=== PATIENT | male | born 1950 | race Two or more races ===

== ENCOUNTER 2017-11-21 14:56 | Emergency (ER) | payer MEDICARE ==
[~2017-11-21] VITALS: Ht 172.7 cm; Wt 81.6 kg
[~2017-11-21 14:56] MED LIST: ALLO100T PO; ASPI81CH43 PO; ATOR20TA50 PO; B-CO800T2 PO; BUPR300T28 PO; CALC667C PO; CLOP75TA28 PO; FAMO-12 PO; GABA300C10 PO; INSU1.2I SC; LISI10TA6 PO; METO-158 PO; OMEP20TA PO; TRAZ50TA2 PO
[2017-11-21 15:08] VITALS: BP 130/82
[2017-11-21 15:50] LABS: Hematocrit 29.8 % (41.0-53.0); Hemoglobin 9.9 g/dL (13.5-17.5); Mean Corpuscular Hemoglobin 30.4 pg (28.0-32.0); Mean Corpuscular Hgb Conc. 33.4 g/dL (32.0-36.0); Mean Corpuscular Volume 91.1 fL (80.0-100.0); Platelet Count (auto) 256 10^3/uL (140-450); Red Blood Cells 3.27 10^6/uL (4.5-5.90); Red Cell Distribution Width 15.4 % (11.8-14.3); White Blood Cell 6.7 10^3/uL (4.4-10.8)
[2017-11-21 15:56] LABS: Basophils % (manual) 0 (0.0-2.0); Blast Cells 0; Metamyelocytes % 0; Myelocytes % 0; Promyelocytes % 0; Reactive Lymphocytes 0
[2017-11-21 16:08] LABS: Albumin 3.3 g/dL (3.4-5.0); BUN/Creatinine Ratio 3.5; Bilirubin, Total 0.4 mg/dL (0.2-1.0); Calcium 8.7 mg/dL (8.5-10.1); Potassium 4.2 mmol/L (3.5-5.1)
[2017-11-21 17:03] LABS: Band Neutrophils % (manual) 3; Eosinophils % (manual) 18 (0-7); Lymphocytes % (manual) 16 (10.0-50.0); Monocytes % (manual) 18 (0-12)
== END 2017-11-21 16:30 | disposition home or self-care (01) ==
LOC: ER 14:58
DX: G47.00 Insomnia, unspecified (principal); E11.22 Type 2 diabetes mellitus with diabetic chronic kidney disease; I12.0 Hypertensive chronic kidney disease with stage 5 chronic kidney disease or end stage renal disease; N18.6 End stage renal disease; M10.9 Gout, unspecified; Z99.2 Dependence on renal dialysis; Z79.4 Long term (current) use of insulin; Z86.73 Personal history of transient ischemic attack (TIA), and cerebral infarction without residual deficits; Z79.82 Long term (current) use of aspirin
CPT/HCPCS: 36415; 80053; 85007; 85027

== ENCOUNTER 2017-11-27 16:26 | Inpatient (IN) | payer MEDICARE ==
[~2017-11-27] VITALS: Ht 165.1 cm; Wt 85.2 kg
[2017-11-27] MEDS ORDERED: SODIUM CHLORIDE 0.9% 500 ML IVB ONE (16:38)
[2017-11-27] MEDS ORDERED: diphenhdrAMINE HCL 50 MG/1 ML VL IV ONE ×2 (16:45→19:45)
[2017-11-27] MEDS ORDERED: HALOPERIDOL LACTATE 5 MG/ML INJ VIAL IM ONE ×2 (16:45→19:45)
[2017-11-27] MEDS ORDERED: LORazepam 2MG/ML-1ML VIAL IV ONE (16:45)
[2017-11-27 17:33] LABS: Basophils # (auto) 0 uL; Basophils % (auto) 0.4 % (0.0-2.0); Eosinophils # (auto) 1.1 uL; Eosinophils % (auto) 13.5 % (0.0-7.0); Hematocrit 28.8 % (41.0-53.0); Hemoglobin 9.5 g/dL (13.5-17.5); Lymphocytes # (auto) 0.9 uL; Mean Corpuscular Hgb Conc. 33.1 g/dL (32.0-36.0); Mean Corpuscular Volume 90.6 fL (80.0-100.0); Monocytes # (auto) 0.8 uL; Monocytes % (auto) 9.5 % (0.0-12.0); Neutrophils # (auto) 5.3 uL; Neutrophils % (auto) 65.6 % (37.0-80.0); Platelet Count (auto) 207 10^3/uL (140-450); Red Blood Cells 3.18 10^6/uL (4.5-5.90); Red Cell Distribution Width 14.8 % (11.8-14.3); White Blood Cell 8.1 10^3/uL (4.4-10.8)
[2017-11-27 17:51] LABS: Lactic Acid w/Reflex 2.8 mmol/L (0.4-2.0)
[2017-11-27 17:52] LABS: Alanine Aminotransferase 15 U/L (16-61); Albumin 3.1 g/dL (3.4-5.0); Alkaline Phosphatase 52 U/L (45-117); Anion Gap 15 (5-15); Aspartate Aminotransferase 15 U/L (15-37); BUN/Creatinine Ratio 4.9; Bilirubin, Total 0.5 mg/dL (0.2-1.0); Blood Alcohol < 3.0 mg/dL (0-5); Blood Urea Nitrogen 46 mg/dL (7-18); Carbon Dioxide 23 mmol/L (21-32); Chloride 104 mmol/L (98-107); GFR African American 7 mL/min; GFR Non-African American 6 mL/min; Glucose 125 mg/dL (74-106); Magnesium 2.6 mg/dL (1.6-2.6); Potassium 4.7 mmol/L (3.5-5.1); Sodium 142 mmol/L (136-145); Total Protein 6.5 g/dL (6.4-8.2)
[2017-11-27] MEDS ORDERED: LEVOFLOXACIN 500MG 100 ML IV ONE (18:30)
[2017-11-27 18:53] LABS: Alcohol, Urine < 3.0 mg/dL (0-5); Amphetamine Screen, Urine NEGATIVE (NEGATIVE); Barbiturate Scree,Urine NEGATIVE (NEGATIVE); Benzodiazephine Screen, Urine NEGATIVE (NEGATIVE); Cannabinoid Screen, Urine NEGATIVE (NEGATIVE); Cocaine Screen, Urine NEGATIVE (NEGATIVE); Opiate Scree,Urine NEGATIVE (NEGATIVE); Phencyclidine Screen, Urine NEGATIVE (NEGATIVE)
[2017-11-27 19:18] LABS: Urine Bacteria NONE SEEN /hpf (None Seen); Urine Blood Negative /uL (Negative); Urine Specific Gravity 1.009 (1.001-1.035); Urine WBC 1 /hpf (0 - 3)
[2017-11-27] MEDS ORDERED: LORazepam 2MG/ML-1ML VIAL IM ONE (19:45)
[2017-11-27] MEDS ORDERED: SODIUM CHLORIDE 0.9% 500 ML IV ONE (19:45)
[2017-11-27] MEDS ORDERED: SODIUM CHLORIDE 0.9% 1,000 ML IV SCH (20:54)
[2017-11-27] MEDS ORDERED: LORazepam 2MG/ML-1ML VIAL IV PRN (21:00)
[2017-11-27] MEDS ORDERED: HYDROcodone-ACET 5/325MG TAB PO PRN (21:00)
[2017-11-27] MEDS ORDERED: DEXTROSE (50%) 50ML SYRG IV PRN (21:00)
[2017-11-27] MEDS ORDERED: cefTRIAXone 1GM/10ml IVPUSH 10 ML IV ONE (21:00)
[2017-11-27] MEDS ORDERED: NITROGLYCERIN 0.4 MG SL TAB SL PRN (21:00)
[2017-11-27] MEDS ORDERED: MORPHINE SULFATE 8mg/ml INJ SDV IV PRN (21:00)
[2017-11-27] MEDS ORDERED: ACETAMINOPHEN 325 MG TAB PO PRN (21:00)
[2017-11-27] MEDS ORDERED: ONDANSETRON HCL 4 MG/2 ML VIAL IV PRN (21:00)
[2017-11-27] MEDS: ATORVASTATIN 20 MG TAB PO SCH (22:00)
[2017-11-27] MEDS: METOPROLOL TARTRATE 50 MG TAB PO SCH (22:00)
[2017-11-27] MEDS: HEPARIN SODIUM (PORCINE) 5000 UNITS/ML 1ML VIAL SC SCH (22:23)
[2017-11-27 23:35] VITALS: BP 143/61
[2017-11-28 00:15] VITALS: BP 143/61
[2017-11-28] MEDS: ACCU-CHEK COMFORT CURVE STRIP VI SCH ×4 (01:14→18:05)
[2017-11-28 05:00] VITALS: BP 144/72
[2017-11-28] MEDS: InsuLIN REG 1unit/0.01ml Soln (100units/ml) SC SCH ×4 (06:00→18:00)
[2017-11-28 06:49] LABS: Basophils # (auto) 0.1 uL; Basophils % (auto) 1.1 % (0.0-2.0); Eosinophils # (auto) 0.5 uL; Eosinophils % (auto) 7.2 % (0.0-7.0); Hematocrit 28.3 % (41.0-53.0); Hemoglobin 9.5 g/dL (13.5-17.5); Lymphocytes # (auto) 1.5 uL; Lymphocytes % (auto) 19.9 % (10.0-50.0); Mean Corpuscular Hemoglobin 30.2 pg (28.0-32.0); Mean Corpuscular Hgb Conc. 33.6 g/dL (32.0-36.0); Mean Corpuscular Volume 90.1 fL (80.0-100.0); Neutrophils # (auto) 4.3 uL; Neutrophils % (auto) 58.8 % (37.0-80.0); Platelet Count (auto) 212 10^3/uL (140-450); Red Blood Cells 3.14 10^6/uL (4.5-5.90); Red Cell Distribution Width 15.2 % (11.8-14.3); White Blood Cell 7.4 10^3/uL (4.4-10.8)
[2017-11-28] MEDS: buPROPion HCL 75 MG TAB PO SCH ×2 (07:00→19:00)
[2017-11-28 07:11] LABS: Potassium 5.1 mmol/L (3.5-5.1)
[2017-11-28 07:16] LABS: Albumin 2.9 g/dL (3.4-5.0); BUN/Creatinine Ratio 5.2; Bilirubin, Total 0.5 mg/dL (0.2-1.0); Calcium 8.9 mg/dL (8.5-10.1); Total Protein 6.5 g/dL (6.4-8.2)
[2017-11-28] MEDS ORDERED: HALOPERIDOL LACTATE 5 MG/ML INJ VIAL ONE (07:17)
[2017-11-28] MEDS: LORazepam 2MG/ML-1ML VIAL IM PRN ×2 (07:32→23:57)
[2017-11-28 09:00] VITALS: BP 197/91
[2017-11-28] MEDS: METOPROLOL TARTRATE 50 MG TAB PO SCH ×2 (10:00→22:00)
[2017-11-28] MEDS: PANTOPRAZOLE 40 MG TAB PO SCH (10:00)
[2017-11-28] MEDS: ALLOPURINOL 100 MG TAB PO SCH (10:00)
[2017-11-28] MEDS: LISINOPRIL 10 MG TAB PO SCH (10:00)
[2017-11-28] MEDS: CLOPIDOGREL BISULFATE 75 MG TAB PO SCH (10:00)
[2017-11-28] MEDS: cefTRIAXone 1GM/10ml IVPUSH 10 ML IV SCH (11:06)
[2017-11-28] MEDS: HEPARIN SODIUM (PORCINE) 5000 UNITS/ML 1ML VIAL SC SCH (11:11)
[2017-11-28] MEDS ORDERED: HALOPERIDOL LACTATE 5 MG/ML INJ VIAL IM PRN (12:00)
[2017-11-28 13:00] VITALS: BP 178/75
[2017-11-28 17:00] VITALS: BP 198/93
[2017-11-28] MEDS: D5W/SOD CHL 0.45% 1,000 ML IV SCH (19:27)
[2017-11-28] MEDS: HALOPERIDOL LACTATE 5 MG/ML INJ VIAL IM PRN (19:55)
[2017-11-28 22:00] VITALS: BP 122/46
[2017-11-28] MEDS: ATORVASTATIN 20 MG TAB PO SCH (22:00)
[2017-11-28] MEDS ORDERED: EPOETIN ALFA 10,000 UNIT/1 ML VIAL IV ONE (23:15)
[2017-11-29] MEDS: ACCU-CHEK COMFORT CURVE STRIP VI SCH ×5 (00:06→23:36)
[2017-11-29] MEDS: HALOPERIDOL LACTATE 5 MG/ML INJ VIAL IM PRN ×2 (02:04→09:11)
[2017-11-29 05:11] VITALS: BP 187/69
[2017-11-29] MEDS: InsuLIN REG 1unit/0.01ml Soln (100units/ml) SC SCH ×5 (05:38→23:36)
[2017-11-29] MEDS: buPROPion HCL 75 MG TAB PO SCH ×2 (06:24→18:54)
[2017-11-29 09:19] LABS: Basophils # (auto) 0.1 uL; Basophils % (auto) 1.2 % (0.0-2.0); Eosinophils # (auto) 0.2 uL; Eosinophils % (auto) 1.9 % (0.0-7.0); Hemoglobin 9.8 g/dL (13.5-17.5); Lymphocytes # (auto) 1.5 uL; Lymphocytes % (auto) 17.1 % (10.0-50.0); Mean Corpuscular Hemoglobin 29.6 pg (28.0-32.0); Mean Corpuscular Hgb Conc. 32.7 g/dL (32.0-36.0); Mean Corpuscular Volume 90.5 fL (80.0-100.0); Monocytes # (auto) 1.6 uL; Monocytes % (auto) 17.8 % (0.0-12.0); Neutrophils # (auto) 5.5 uL; Nucleated Red Blood Cells % 0.1 %; Platelet Count (auto) 222 10^3/uL (140-450); Red Blood Cells 3.31 10^6/uL (4.5-5.90); Red Cell Distribution Width 15.2 % (11.8-14.3); White Blood Cell 8.8 10^3/uL (4.4-10.8)
[2017-11-29 09:38] LABS: Albumin 3.3 g/dL (3.4-5.0); BUN/Creatinine Ratio 4.8; Calcium 9.5 mg/dL (8.5-10.1); Potassium 5.2 mmol/L (3.5-5.1)
[2017-11-29 09:39] LABS: Bilirubin, Total 0.6 mg/dL (0.2-1.0); Total Protein 7.2 g/dL (6.4-8.2)
[2017-11-29] MEDS: cefTRIAXone 1GM/10ml IVPUSH 10 ML IV SCH (09:57)
[2017-11-29] MEDS: METOPROLOL TARTRATE 50 MG TAB PO SCH ×2 (09:57→22:00)
[2017-11-29] MEDS: PANTOPRAZOLE 40 MG TAB PO SCH (09:57)
[2017-11-29] MEDS: CLOPIDOGREL BISULFATE 75 MG TAB PO SCH (09:57)
[2017-11-29] MEDS: LISINOPRIL 10 MG TAB PO SCH (09:57)
[2017-11-29] MEDS: ALLOPURINOL 100 MG TAB PO SCH (09:58)
[2017-11-29] MEDS ORDERED: CALCIUM GLUC 4.65meq/50ml D5AE 50 ML IV ONE (10:00)
[2017-11-29] MEDS ORDERED: ENOXAPARIN SOD 40 MG/0.4 ML SYRINGE SC SCH (10:00)
[2017-11-29] MEDS ORDERED: SODIUM BICARBONATE 8.4 % INJ 50ML VIAL IV ONE (10:00)
[2017-11-29] MEDS: LORazepam 2MG/ML-1ML VIAL IM PRN (11:39)
[2017-11-29 11:43] LABS: Folate (Folic Acid) 22.02 ng/mL (5.38-24)
[2017-11-29] MEDS: THIAMINE IV SCH (12:07)
[2017-11-29] MEDS: FOLIC ACID IV SCH (12:07)
[2017-11-29] MEDS: MULTIPLE VITAMIN IV SCH (12:07)
[2017-11-29] MEDS: D5W 5% IV SCH (12:07)
[2017-11-29] MEDS: D5W/SOD CHL 0.45% 1,000 ML IV SCH (13:22)
[2017-11-29] MEDS: ENOXAPARIN SOD 30 MG/0.3 ML SYRINGE SC SCH (13:41)
[2017-11-29] MEDS: ACETAMINOPHEN 650 MG RECT SUPP PR PRN (16:04)
[2017-11-29] MEDS ORDERED: DIAZEPAM 5 MG/ML 2ML SYRG IV ONE (19:45)
[2017-11-29] MEDS: LORazepam 2MG/ML-1ML VIAL IV PRN (21:18)
[2017-11-29 22:00] VITALS: BP 167/104
[2017-11-29] MEDS: ATORVASTATIN 20 MG TAB PO SCH (22:00)
[2017-11-30 04:29] VITALS: BP 214/100
[2017-11-30] MEDS: D5W/SOD CHL 0.45% 1,000 ML IV SCH ×2 (05:16→12:07)
[2017-11-30] MEDS: LORazepam 2MG/ML-1ML VIAL IV PRN ×3 (05:17→20:58)
[2017-11-30] MEDS: hydrALAZINE HCL 20 MG/ML VL IV PRN ×2 (05:49→23:22)
[2017-11-30] MEDS: ACCU-CHEK COMFORT CURVE STRIP VI SCH ×4 (05:52→23:34)
[2017-11-30] MEDS: InsuLIN REG 1unit/0.01ml Soln (100units/ml) SC SCH ×4 (06:21→23:34)
[2017-11-30 06:45] VITALS: BP 134/74
[2017-11-30 06:50] LABS: Basophils # (auto) 0.1 uL; Basophils % (auto) 0.9 % (0.0-2.0); Eosinophils # (auto) 0.3 uL; Eosinophils % (auto) 3.3 % (0.0-7.0); Hematocrit 30.9 % (41.0-53.0); Hemoglobin 10.1 g/dL (13.5-17.5); Lymphocytes # (auto) 1.5 uL; Lymphocytes % (auto) 15.1 % (10.0-50.0); Mean Corpuscular Hemoglobin 29.6 pg (28.0-32.0); Mean Corpuscular Hgb Conc. 32.6 g/dL (32.0-36.0); Monocytes # (auto) 1.6 uL; Monocytes % (auto) 15.8 % (0.0-12.0); Neutrophils # (auto) 6.4 uL; Neutrophils % (auto) 64.9 % (37.0-80.0); Nucleated Red Blood Cells % 0.1 %; Platelet Count (auto) 217 10^3/uL (140-450); Red Cell Distribution Width 15.3 % (11.8-14.3); White Blood Cell 9.9 10^3/uL (4.4-10.8)
[2017-11-30] MEDS: buPROPion HCL 75 MG TAB PO SCH ×2 (07:00→18:07)
[2017-11-30 07:13] LABS: Albumin 3.3 g/dL (3.4-5.0); BUN/Creatinine Ratio 4.6; Bilirubin, Total 0.6 mg/dL (0.2-1.0); Calcium 9.8 mg/dL (8.5-10.1); Potassium 4.9 mmol/L (3.5-5.1); Total Protein 7.3 g/dL (6.4-8.2)
[2017-11-30] MEDS ORDERED: HALOPERIDOL LACTATE 5 MG/ML INJ VIAL IM ONE (08:45)
[2017-11-30 08:54] VITALS: BP 151/82
[2017-11-30] MEDS: cefTRIAXone 1GM/10ml IVPUSH 10 ML IV SCH (08:58)
[2017-11-30] MEDS ORDERED: VANCOMYCIN 1GM/250ML 250 ML IV ONE (09:00)
[2017-11-30] MEDS ORDERED: VANCOMYCIN PER PHARMACY 0 MG IV SCH (09:00)
[2017-11-30] MEDS: CLOPIDOGREL BISULFATE 75 MG TAB PO SCH (09:08)
[2017-11-30] MEDS: METOPROLOL TARTRATE 50 MG TAB PO SCH (09:08)
[2017-11-30] MEDS: ALLOPURINOL 100 MG TAB PO SCH (09:09)
[2017-11-30] MEDS: PANTOPRAZOLE 40 MG TAB PO SCH (09:09)
[2017-11-30] MEDS: LISINOPRIL 10 MG TAB PO SCH (09:09)
[2017-11-30 09:21] LABS: INR 1.13 (0.9-1.15); Partial Thromboplastin Time 24.7 sec (22.64-33.71); Prothrombin Time 12.3 sec (9.37-12.3)
[2017-11-30] MEDS: ENOXAPARIN SOD 30 MG/0.3 ML SYRINGE SC SCH (09:21)
[2017-11-30] MEDS: ACETAMINOPHEN 650 MG RECT SUPP PR PRN (09:54)
[2017-11-30] MEDS ORDERED: LIDOCAINE 2% (LOCAL ANESTH.) PF 5ml SDV ONE ×2 (10:20→11:44)
[2017-11-30 13:00] VITALS: BP 150/64
[2017-11-30] MEDS: MULTIPLE VITAMIN IV SCH (16:30)
[2017-11-30] MEDS: FOLIC ACID IV SCH (16:30)
[2017-11-30] MEDS: THIAMINE IV SCH (16:30)
[2017-11-30] MEDS: D5W 5% IV SCH (16:30)
[2017-11-30 17:13] VITALS: BP 149/75
[2017-11-30] MEDS ORDERED: EPOETIN ALFA 10,000 UNIT/1 ML VIAL IV ONE (18:30)
[2017-11-30] MEDS ORDERED: METOPROLOL TARTRATE 1MG/1ML-5ML VIAL IV ONE (19:45)
[2017-11-30] MEDS ORDERED: DIGOXIN (250MCG/ML) 2 ML AMPULE IV ONE (19:45)
[2017-12-01] VITALS (7 sets, daily range): BP systolic 119–202; BP diastolic 51–87
[2017-12-01] MEDS: METOPROLOL TARTRATE 50 MG TAB PO SCH (00:18)
[2017-12-01] MEDS: ATORVASTATIN 20 MG TAB PO SCH (00:18)
[2017-12-01] MEDS: LABETALOL HCL 5 MG/ML ML 20ML VIAL IV PRN ×2 (02:04→08:55)
[2017-12-01 05:23] LABS: Basophils # (auto) 0.1 uL; Eosinophils # (auto) 0.4 uL; Eosinophils % (auto) 3.9 % (0.0-7.0); Hematocrit 31.1 % (41.0-53.0); Hemoglobin 10.3 g/dL (13.5-17.5); Lymphocytes # (auto) 1.6 uL; Lymphocytes % (auto) 17.9 % (10.0-50.0); Mean Corpuscular Hemoglobin 30.3 pg (28.0-32.0); Mean Corpuscular Hgb Conc. 33.3 g/dL (32.0-36.0); Mean Corpuscular Volume 90.9 fL (80.0-100.0); Monocytes # (auto) 1.3 uL; Monocytes % (auto) 14.7 % (0.0-12.0); Neutrophils # (auto) 5.7 uL; Neutrophils % (auto) 62.5 % (37.0-80.0); Nucleated Red Blood Cells % 0.1 %; Platelet Count (auto) 218 10^3/uL (140-450); Red Blood Cells 3.42 10^6/uL (4.5-5.90); Red Cell Distribution Width 15.3 % (11.8-14.3); White Blood Cell 9.1 10^3/uL (4.4-10.8)
[2017-12-01 05:36] LABS: BUN/Creatinine Ratio 4.2; Calcium 9.5 mg/dL (8.5-10.1)
[2017-12-01] MEDS: InsuLIN REG 1unit/0.01ml Soln (100units/ml) SC SCH ×3 (05:36→17:02)
[2017-12-01] MEDS: ACCU-CHEK COMFORT CURVE STRIP VI SCH ×3 (05:36→17:03)
[2017-12-01] MEDS: hydrALAZINE HCL 20 MG/ML VL IV PRN ×3 (05:41→18:43)
[2017-12-01 05:45] LABS: Bilirubin, Total 0.7 mg/dL (0.2-1.0); Total Protein 6.8 g/dL (6.4-8.2)
[2017-12-01] MEDS: buPROPion HCL 75 MG TAB PO SCH ×2 (07:00→16:50)
[2017-12-01] MEDS ORDERED: VANCOMYCIN 500 MG in D5W 5% 100 ML IV ONE (09:00)
[2017-12-01] MEDS ORDERED: METOPROLOL TARTRATE 1MG/1ML-5ML VIAL IV PRN (09:45)
[2017-12-01] MEDS ORDERED: LISINOPRIL 10 MG TAB NG SCH (10:00)
[2017-12-01] MEDS: MORPHINE SULFATE 8mg/ml INJ SDV IV PRN ×2 (10:25→20:28)
[2017-12-01 10:37] LABS: CSF White Blood Cells 2.2 CUMM (0-5)
[2017-12-01] MEDS ORDERED: NITROGLYCERIN 2% OINT 1GM PKG TD PRN (11:00)
[2017-12-01] MEDS: ENOXAPARIN SOD 30 MG/0.3 ML SYRINGE SC SCH (11:30)
[2017-12-01] MEDS: cefTRIAXone 1GM/10ml IVPUSH 10 ML IV SCH (11:31)
[2017-12-01] MEDS: ALLOPURINOL 100 MG TAB NG SCH (11:32)
[2017-12-01] MEDS: ENALAPRILAT 1.25 MG/ML-1ML VIAL IV SCH ×2 (11:32→17:47)
[2017-12-01] MEDS: PANTOPRAZOLE 40 MG/10 ML VIAL IV SCH (11:33)
[2017-12-01] MEDS: CLOPIDOGREL BISULFATE 75 MG TAB NG SCH (11:41)
[2017-12-01] MEDS: D5W/SOD CHL 0.45% 1,000 ML IV SCH (13:04)
[2017-12-01 15:50] LABS: Protein, CSF 103.4 mg/dL (15-45)
[2017-12-01] MEDS ORDERED: HALOPERIDOL LACTATE 5 MG/ML INJ VIAL IM PRN (17:00)
[2017-12-01] MEDS: ATORVASTATIN 20 MG TAB NG SCH (21:36)
[2017-12-02] VITALS (9 sets, daily range): BP systolic 101–170; BP diastolic 50–62
[2017-12-02] MEDS: ACCU-CHEK COMFORT CURVE STRIP VI SCH ×5 (00:28→23:48)
[2017-12-02 05:18] LABS: Basophils # (auto) 0.1 uL; Basophils % (auto) 1.1 % (0.0-2.0); Eosinophils # (auto) 0.7 uL; Eosinophils % (auto) 8.2 % (0.0-7.0); Hematocrit 33.1 % (41.0-53.0); Hemoglobin 10.6 g/dL (13.5-17.5); Lymphocytes # (auto) 1.7 uL; Lymphocytes % (auto) 19.1 % (10.0-50.0); Mean Corpuscular Hemoglobin 29.5 pg (28.0-32.0); Mean Corpuscular Hgb Conc. 32.1 g/dL (32.0-36.0); Monocytes # (auto) 1.5 uL; Neutrophils % (auto) 54.6 % (37.0-80.0); Nucleated Red Blood Cells % 0.2 %; Platelet Count (auto) 238 10^3/uL (140-450); Red Cell Distribution Width 15.6 % (11.8-14.3); White Blood Cell 9.1 10^3/uL (4.4-10.8)
[2017-12-02 05:47] LABS: BUN/Creatinine Ratio 4.8; Bilirubin, Total 0.5 mg/dL (0.2-1.0); Calcium 9.7 mg/dL (8.5-10.1)
[2017-12-02] MEDS: buPROPion HCL 75 MG TAB PO SCH ×2 (05:47→19:00)
[2017-12-02] MEDS: InsuLIN REG 1unit/0.01ml Soln (100units/ml) SC SCH ×5 (06:00→23:48)
[2017-12-02] MEDS ORDERED: SODIUM BICARBONATE 8.4 % INJ 50ML VIAL IV ONE (06:15)
[2017-12-02] MEDS ORDERED: InsuLIN REG 1unit/0.01ml Soln (100units/ml) IV ONE (06:15)
[2017-12-02] MEDS ORDERED: CALCIUM GLUC 4.65meq/50ml D5AE 50 ML IV ONE (06:15)
[2017-12-02] MEDS ORDERED: SODIUM POLYSTYRENE SULF 15GM/60ML SUSP PO ONE (06:15)
[2017-12-02] MEDS ORDERED: DEXTROSE (50%) 50ML SYRG IV ONE (06:15)
[2017-12-02] MEDS: ENALAPRILAT 1.25 MG/ML-1ML VIAL IV SCH ×2 (06:18)
[2017-12-02] MEDS: D5W/SOD CHL 0.45% 1,000 ML IV SCH ×2 (06:19→23:00)
[2017-12-02] MEDS: MEMANTINE HCL 5 MG TAB PO SCH ×2 (09:30→15:25)
[2017-12-02] MEDS ORDERED: SODIUM CHL 0.9% 1000 ML BAG XX ONE (10:00)
[2017-12-02] MEDS ORDERED: EPOETIN ALFA 2,000 UNIT/1 ML VIAL IV ONE (10:00)
[2017-12-02] MEDS ORDERED: AMIODARONE HCL (50 MG/ ML) 3 ML VIAL IV ONE (10:55)
[2017-12-02] MEDS ORDERED: D5W 5% 100 ML BAG IV ONE (10:55)
[2017-12-02] MEDS ORDERED: EPOETIN ALFA 4,000 UNIT/ML VL IV ONE (13:15)
[2017-12-02] MEDS ORDERED: Novasource Renal 1 Liter GT SCH (14:00)
[2017-12-02] MEDS: CLOPIDOGREL BISULFATE 75 MG TAB NG SCH (15:24)
[2017-12-02] MEDS: PANTOPRAZOLE 40 MG/10 ML VIAL IV SCH (15:24)
[2017-12-02] MEDS: cefTRIAXone 1GM/10ml IVPUSH 10 ML IV SCH (15:24)
[2017-12-02] MEDS: ALLOPURINOL 100 MG TAB NG SCH (15:24)
[2017-12-02] MEDS: B-COMPLEX W/ C & FOLIC ACID(NEPHROVITE TAB) PO SCH ×2 (15:24→15:25)
[2017-12-02] MEDS: amLODIPine BESYLATE 5 MG TAB PO SCH (15:24)
[2017-12-02] MEDS: ENOXAPARIN SOD 30 MG/0.3 ML SYRINGE SC SCH (15:25)
[2017-12-02] MEDS ORDERED: VANCOMYCIN 1GM/250ML 250 ML IV ONE (17:00)
[2017-12-02] MEDS: ATORVASTATIN 20 MG TAB NG SCH (21:55)
[2017-12-02] MEDS: hydrALAZINE HCL 20 MG/ML VL IV PRN (23:22)
[2017-12-03] VITALS (7 sets, daily range): BP systolic 118–169; BP diastolic 54–70
[2017-12-03 05:25] LABS: Basophils # (auto) 0 uL; Basophils % (auto) 0.6 % (0.0-2.0); Eosinophils # (auto) 1.1 uL; Eosinophils % (auto) 13.2 % (0.0-7.0); Hematocrit 31.6 % (41.0-53.0); Hemoglobin 10.2 g/dL (13.5-17.5); Lymphocytes # (auto) 1.6 uL; Lymphocytes % (auto) 19.1 % (10.0-50.0); Mean Corpuscular Hemoglobin 29.9 pg (28.0-32.0); Mean Corpuscular Hgb Conc. 32.4 g/dL (32.0-36.0); Mean Corpuscular Volume 92.4 fL (80.0-100.0); Monocytes # (auto) 1.4 uL; Monocytes % (auto) 17.4 % (0.0-12.0); Neutrophils # (auto) 4.1 uL; Neutrophils % (auto) 49.7 % (37.0-80.0); Nucleated Red Blood Cells % 0.2 %; Platelet Count (auto) 174 10^3/uL (140-450); Red Blood Cells 3.42 10^6/uL (4.5-5.90); Red Cell Distribution Width 15.5 % (11.8-14.3); White Blood Cell 8.3 10^3/uL (4.4-10.8)
[2017-12-03 05:48] LABS: Albumin 2.7 g/dL (3.4-5.0); BUN/Creatinine Ratio 4.5; Bilirubin, Total 0.4 mg/dL (0.2-1.0); Calcium 9.1 mg/dL (8.5-10.1); Phosphorus 6.1 mg/dL (2.5-4.90); Potassium 4.4 mmol/L (3.5-5.1); Total Protein 6.4 g/dL (6.4-8.2)
[2017-12-03] MEDS: ACCU-CHEK COMFORT CURVE STRIP VI SCH ×3 (05:59→17:54)
[2017-12-03] MEDS: InsuLIN REG 1unit/0.01ml Soln (100units/ml) SC SCH ×3 (05:59→17:54)
[2017-12-03] MEDS: buPROPion HCL 75 MG TAB PO SCH ×2 (06:43→18:40)
[2017-12-03] MEDS: cefTRIAXone 1GM/10ml IVPUSH 10 ML IV SCH (08:33)
[2017-12-03] MEDS: PANTOPRAZOLE 40 MG/10 ML VIAL IV SCH (10:10)
[2017-12-03] MEDS: ENOXAPARIN SOD 30 MG/0.3 ML SYRINGE SC SCH (10:10)
[2017-12-03] MEDS: MEMANTINE HCL 5 MG TAB PO SCH (10:11)
[2017-12-03] MEDS: B-COMPLEX W/ C & FOLIC ACID(NEPHROVITE TAB) PO SCH (10:11)
[2017-12-03] MEDS: ALLOPURINOL 100 MG TAB NG SCH (10:11)
[2017-12-03] MEDS: CLOPIDOGREL BISULFATE 75 MG TAB NG SCH (10:12)
[2017-12-03] MEDS: amLODIPine BESYLATE 5 MG TAB PO SCH (10:12)
[2017-12-03] MEDS: D5W/SOD CHL 0.45% 1,000 ML IV SCH ×2 (15:14→23:23)
[2017-12-03] MEDS: hydrALAZINE HCL 20 MG/ML VL IV PRN (15:28)
[2017-12-03] MEDS: ATORVASTATIN 20 MG TAB NG SCH (21:52)
[2017-12-04] VITALS (17 sets, daily range): BP systolic 100–192; BP diastolic 48–69
[2017-12-04] MEDS: ACCU-CHEK COMFORT CURVE STRIP VI SCH ×5 (00:18→23:50)
[2017-12-04] MEDS: InsuLIN REG 1unit/0.01ml Soln (100units/ml) SC SCH ×6 (00:18→23:50)
[2017-12-04] MEDS: hydrALAZINE HCL 20 MG/ML VL IV PRN ×2 (00:57→01:18)
[2017-12-04 05:56] LABS: Basophils # (auto) 0 uL; Basophils % (auto) 0.5 % (0.0-2.0); Eosinophils # (auto) 0.8 uL; Eosinophils % (auto) 12.8 % (0.0-7.0); Hemoglobin 9.5 g/dL (13.5-17.5); Lymphocytes # (auto) 1.3 uL; Lymphocytes % (auto) 19.4 % (10.0-50.0); Mean Corpuscular Hemoglobin 30.1 pg (28.0-32.0); Mean Corpuscular Hgb Conc. 32.8 g/dL (32.0-36.0); Mean Corpuscular Volume 91.7 fL (80.0-100.0); Monocytes % (auto) 14.4 % (0.0-12.0); Neutrophils # (auto) 3.5 uL; Neutrophils % (auto) 52.9 % (37.0-80.0); Nucleated Red Blood Cells % 0.2 %; Platelet Count (auto) 200 10^3/uL (140-450); Red Blood Cells 3.16 10^6/uL (4.5-5.90); Red Cell Distribution Width 15.4 % (11.8-14.3); White Blood Cell 6.6 10^3/uL (4.4-10.8)
[2017-12-04 06:16] LABS: Albumin 2.5 g/dL (3.4-5.0); BUN/Creatinine Ratio 4.9; Bilirubin, Total 0.4 mg/dL (0.2-1.0); Calcium 9.3 mg/dL (8.5-10.1); Potassium 4.4 mmol/L (3.5-5.1); Total Protein 6.2 g/dL (6.4-8.2)
[2017-12-04] MEDS: buPROPion HCL 75 MG TAB PO SCH ×2 (06:46→18:25)
[2017-12-04] MEDS: cefTRIAXone 1GM/10ml IVPUSH 10 ML IV SCH (09:10)
[2017-12-04] MEDS: B-COMPLEX W/ C & FOLIC ACID(NEPHROVITE TAB) PO SCH (10:18)
[2017-12-04] MEDS: ALLOPURINOL 100 MG TAB NG SCH (10:18)
[2017-12-04] MEDS: PANTOPRAZOLE 40 MG/10 ML VIAL IV SCH (10:18)
[2017-12-04] MEDS: CLOPIDOGREL BISULFATE 75 MG TAB NG SCH (10:18)
[2017-12-04] MEDS: ENOXAPARIN SOD 30 MG/0.3 ML SYRINGE SC SCH (10:19)
[2017-12-04] MEDS: MEMANTINE HCL 5 MG TAB PO SCH (10:19)
[2017-12-04] MEDS: amLODIPine BESYLATE 5 MG TAB PO SCH (10:19)
[2017-12-04] MEDS ORDERED: SODIUM CHL 0.9% 1000 ML BAG XX ONE (11:30)
[2017-12-04] MEDS ORDERED: EPOETIN ALFA 10,000 UNIT/1 ML VIAL IV ONE (11:30)
[2017-12-04] MEDS ORDERED: Novasource Renal 1 Liter GT SCH (11:35)
[2017-12-04] MEDS: ATORVASTATIN 20 MG TAB NG SCH (21:27)
[2017-12-04] MEDS: D5W/SOD CHL 0.45% 1,000 ML IV SCH (23:50)
[2017-12-05 04:00] VITALS: BP 140/63
[2017-12-05 05:20] LABS: Basophils # (auto) 0.1 uL; Basophils % (auto) 0.6 % (0.0-2.0); Eosinophils # (auto) 0.1 uL; Eosinophils % (auto) 0.8 % (0.0-7.0); Hematocrit 33.3 % (41.0-53.0); Hemoglobin 10.7 g/dL (13.5-17.5); Lymphocytes # (auto) 1.9 uL; Lymphocytes % (auto) 15.3 % (10.0-50.0); Mean Corpuscular Hemoglobin 29.8 pg (28.0-32.0); Mean Corpuscular Hgb Conc. 32.1 g/dL (32.0-36.0); Mean Corpuscular Volume 92.6 fL (80.0-100.0); Monocytes # (auto) 1.6 uL; Neutrophils # (auto) 8.6 uL; Neutrophils % (auto) 70.3 % (37.0-80.0); Nucleated Red Blood Cells % 0.5 %; Platelet Count (auto) 186 10^3/uL (140-450); Red Blood Cells 3.59 10^6/uL (4.5-5.90); Red Cell Distribution Width 15.9 % (11.8-14.3); White Blood Cell 12.3 10^3/uL (4.4-10.8)
[2017-12-05 06:00] LABS: Potassium 5.2 mmol/L (3.5-5.1)
[2017-12-05 06:06] LABS: Albumin 2.9 g/dL (3.4-5.0); BUN/Creatinine Ratio 5.8; Bilirubin, Total 0.5 mg/dL (0.2-1.0); Total Protein 6.7 g/dL (6.4-8.2)
[2017-12-05] MEDS: buPROPion HCL 75 MG TAB PO SCH ×2 (06:31→18:43)
[2017-12-05] MEDS: ACCU-CHEK COMFORT CURVE STRIP VI SCH ×3 (06:38→18:30)
[2017-12-05] MEDS: InsuLIN REG 1unit/0.01ml Soln (100units/ml) SC SCH ×3 (06:38→18:35)
[2017-12-05 08:00] VITALS: BP 144/58
[2017-12-05 10:11] LABS: Cryptococcus Antigen CSF Negative (Negative)
[2017-12-05] MEDS: MEMANTINE HCL 5 MG TAB PO SCH (11:15)
[2017-12-05] MEDS: PANTOPRAZOLE 40 MG/10 ML VIAL IV SCH (11:15)
[2017-12-05] MEDS: amLODIPine BESYLATE 5 MG TAB PO SCH (11:15)
[2017-12-05] MEDS: ENOXAPARIN SOD 30 MG/0.3 ML SYRINGE SC SCH (11:15)
[2017-12-05] MEDS: ALLOPURINOL 100 MG TAB NG SCH (11:15)
[2017-12-05] MEDS: B-COMPLEX W/ C & FOLIC ACID(NEPHROVITE TAB) PO SCH (11:15)
[2017-12-05] MEDS: CLOPIDOGREL BISULFATE 75 MG TAB NG SCH (11:15)
[2017-12-05] MEDS: cefTRIAXone 1GM/10ml IVPUSH 10 ML IV SCH (11:22)
[2017-12-05] MEDS: FLUCONAZOLE 200MG/100ML 100 ML IV SCH (11:23)
[2017-12-05 11:50] VITALS: BP 147/56
[2017-12-05 15:46] VITALS: BP 161/81
[2017-12-05] MEDS: hydrALAZINE HCL 20 MG/ML VL IV PRN (17:33)
[2017-12-05 19:50] VITALS: BP 124/55
[2017-12-05] MEDS: ATORVASTATIN 20 MG TAB NG SCH (22:31)
[2017-12-06] MEDS: ACCU-CHEK COMFORT CURVE STRIP VI SCH ×4 (00:01→18:50)
[2017-12-06] MEDS: InsuLIN REG 1unit/0.01ml Soln (100units/ml) SC SCH ×4 (00:11→18:50)
[2017-12-06 05:26] LABS: Basophils # (auto) 0.1 uL; Basophils % (auto) 0.5 % (0.0-2.0); Eosinophils # (auto) 0.5 uL; Eosinophils % (auto) 3.9 % (0.0-7.0); Hematocrit 32.4 % (41.0-53.0); Hemoglobin 10.4 g/dL (13.5-17.5); Lymphocytes # (auto) 1.6 uL; Lymphocytes % (auto) 12.4 % (10.0-50.0); Mean Corpuscular Hemoglobin 29.6 pg (28.0-32.0); Mean Corpuscular Volume 92.4 fL (80.0-100.0); Monocytes # (auto) 2.1 uL; Monocytes % (auto) 15.7 % (0.0-12.0); Neutrophils # (auto) 8.9 uL; Neutrophils % (auto) 67.5 % (37.0-80.0); Nucleated Red Blood Cells % 0.2 %; Platelet Count (auto) 211 10^3/uL (140-450); Red Blood Cells 3.51 10^6/uL (4.5-5.90); Red Cell Distribution Width 15.9 % (11.8-14.3); White Blood Cell 13.1 10^3/uL (4.4-10.8)
[2017-12-06 05:52] LABS: Albumin 2.6 g/dL (3.4-5.0); BUN/Creatinine Ratio 7.9; Calcium 9.5 mg/dL (8.5-10.1); Potassium 5.2 mmol/L (3.5-5.1)
[2017-12-06] MEDS: buPROPion HCL 75 MG TAB PO SCH ×2 (05:57→18:54)
[2017-12-06 05:59] LABS: Bilirubin, Total 0.4 mg/dL (0.2-1.0); Total Protein 6.3 g/dL (6.4-8.2)
[2017-12-06 07:30] VITALS: BP 166/78
[2017-12-06] MEDS: amLODIPine BESYLATE 5 MG TAB PO SCH (10:00)
[2017-12-06] MEDS ORDERED: EPOETIN ALFA 3,000 UNIT/1 ML VIAL IV ONE (10:30)
[2017-12-06] MEDS ORDERED: EPOETIN ALFA 2,000 UNIT/1 ML VIAL IV ONE (10:30)
[2017-12-06] MEDS ORDERED: SODIUM CHL 0.9% 1000 ML BAG XX ONE (10:30)
[2017-12-06] MEDS: PANTOPRAZOLE 40 MG/10 ML VIAL IV SCH (11:09)
[2017-12-06] MEDS: FLUCONAZOLE 200MG/100ML 100 ML IV SCH (11:09)
[2017-12-06] MEDS: CLOPIDOGREL BISULFATE 75 MG TAB NG SCH (11:09)
[2017-12-06] MEDS: cefTRIAXone 1GM/10ml IVPUSH 10 ML IV SCH (11:09)
[2017-12-06] MEDS: ENOXAPARIN SOD 30 MG/0.3 ML SYRINGE SC SCH (11:10)
[2017-12-06] MEDS: MEMANTINE HCL 5 MG TAB PO SCH (11:10)
[2017-12-06] MEDS: ALLOPURINOL 100 MG TAB NG SCH (11:10)
[2017-12-06] MEDS: B-COMPLEX W/ C & FOLIC ACID(NEPHROVITE TAB) PO SCH (11:15)
[2017-12-06 11:51] VITALS: BP 101/66
[2017-12-06 15:53] VITALS: BP 113/56
[2017-12-06] MEDS ORDERED: VANCOMYCIN 1GM/250ML 250 ML IV ONE (16:00)
[2017-12-06 19:56] VITALS: BP 145/56
[2017-12-06] MEDS: ATORVASTATIN 20 MG TAB NG SCH (21:31)
[2017-12-07] VITALS (7 sets, daily range): BP systolic 136–154; BP diastolic 60–75
[2017-12-07] MEDS: ACCU-CHEK COMFORT CURVE STRIP VI SCH ×5 (00:05→23:22)
[2017-12-07] MEDS: InsuLIN REG 1unit/0.01ml Soln (100units/ml) SC SCH ×5 (00:06→23:23)
[2017-12-07] MEDS: buPROPion HCL 75 MG TAB PO SCH ×2 (06:25→19:00)
[2017-12-07 07:28] LABS: Basophils # (auto) 0.1 uL; Basophils % (auto) 0.7 % (0.0-2.0); Eosinophils # (auto) 0.8 uL; Eosinophils % (auto) 7.2 % (0.0-7.0); Hematocrit 29.6 % (41.0-53.0); Hemoglobin 9.8 g/dL (13.5-17.5); Lymphocytes # (auto) 1.9 uL; Lymphocytes % (auto) 16.8 % (10.0-50.0); Mean Corpuscular Hemoglobin 30.3 pg (28.0-32.0); Mean Corpuscular Hgb Conc. 33.1 g/dL (32.0-36.0); Mean Corpuscular Volume 91.5 fL (80.0-100.0); Monocytes # (auto) 1.8 uL; Monocytes % (auto) 15.9 % (0.0-12.0); Neutrophils # (auto) 6.9 uL; Neutrophils % (auto) 59.4 % (37.0-80.0); Nucleated Red Blood Cells % 0.1 %; Platelet Count (auto) 200 10^3/uL (140-450); Red Blood Cells 3.24 10^6/uL (4.5-5.90); Red Cell Distribution Width 15.9 % (11.8-14.3); White Blood Cell 11.5 10^3/uL (4.4-10.8)
[2017-12-07 07:43] LABS: Albumin 2.4 g/dL (3.4-5.0); BUN/Creatinine Ratio 8.4; Bilirubin, Total 0.4 mg/dL (0.2-1.0); Calcium 9.1 mg/dL (8.5-10.1); Total Protein 6.7 g/dL (6.4-8.2)
[2017-12-07] MEDS: cefTRIAXone 1GM/10ml IVPUSH 10 ML IV SCH (09:05)
[2017-12-07] MEDS: B-COMPLEX W/ C & FOLIC ACID(NEPHROVITE TAB) PO SCH (10:19)
[2017-12-07] MEDS: FLUCONAZOLE 200MG/100ML 100 ML IV SCH (10:19)
[2017-12-07] MEDS: MEMANTINE HCL 5 MG TAB PO SCH (10:19)
[2017-12-07] MEDS: PANTOPRAZOLE 40 MG/10 ML VIAL IV SCH (10:19)
[2017-12-07] MEDS: ALLOPURINOL 100 MG TAB NG SCH (10:19)
[2017-12-07] MEDS: amLODIPine BESYLATE 5 MG TAB PO SCH (10:21)
[2017-12-07] MEDS: CLOPIDOGREL BISULFATE 75 MG TAB NG SCH (10:22)
[2017-12-07] MEDS: ENOXAPARIN SOD 30 MG/0.3 ML SYRINGE SC SCH (10:22)
[2017-12-07] MEDS: ATORVASTATIN 20 MG TAB NG SCH (21:43)
[2017-12-08 04:13] VITALS: BP 160/72
[2017-12-08 05:27] LABS: Basophils # (auto) 0 uL; Basophils % (auto) 0.4 % (0.0-2.0); Eosinophils % (auto) 10.6 % (0.0-7.0); Hematocrit 30.1 % (41.0-53.0); Hemoglobin 9.9 g/dL (13.5-17.5); Lymphocytes # (auto) 1.4 uL; Lymphocytes % (auto) 15.5 % (10.0-50.0); Mean Corpuscular Hemoglobin 30.2 pg (28.0-32.0); Mean Corpuscular Volume 91.5 fL (80.0-100.0); Monocytes # (auto) 1.5 uL; Monocytes % (auto) 15.9 % (0.0-12.0); Neutrophils # (auto) 5.3 uL; Neutrophils % (auto) 57.6 % (37.0-80.0); Nucleated Red Blood Cells % 0.1 %; Platelet Count (auto) 220 10^3/uL (140-450); Red Blood Cells 3.29 10^6/uL (4.5-5.90); Red Cell Distribution Width 15.8 % (11.8-14.3); White Blood Cell 9.2 10^3/uL (4.4-10.8)
[2017-12-08 05:49] LABS: Albumin 2.3 g/dL (3.4-5.0); BUN/Creatinine Ratio 10.2; Bilirubin, Total 0.3 mg/dL (0.2-1.0); Calcium 9.2 mg/dL (8.5-10.1); Total Protein 6.6 g/dL (6.4-8.2)
[2017-12-08] MEDS: buPROPion HCL 75 MG TAB PO SCH ×2 (06:29→19:13)
[2017-12-08] MEDS: InsuLIN REG 1unit/0.01ml Soln (100units/ml) SC SCH ×3 (06:29→17:56)
[2017-12-08] MEDS: ACCU-CHEK COMFORT CURVE STRIP VI SCH ×3 (06:29→17:55)
[2017-12-08 07:51] VITALS: BP 148/82
[2017-12-08] MEDS: ENOXAPARIN SOD 30 MG/0.3 ML SYRINGE SC SCH (10:00)
[2017-12-08] MEDS: amLODIPine BESYLATE 5 MG TAB PO SCH (10:00)
[2017-12-08] MEDS: cefTRIAXone 1GM/10ml IVPUSH 10 ML IV SCH (10:15)
[2017-12-08] MEDS: FLUCONAZOLE 200MG/100ML 100 ML IV SCH (10:17)
[2017-12-08 12:00] VITALS: BP 111/56
[2017-12-08] MEDS ORDERED: SODIUM CHL 0.9% 1000 ML BAG XX ONE (12:00)
[2017-12-08] MEDS ORDERED: EPOETIN ALFA 10,000 UNIT/1 ML VIAL IV ONE (12:00)
[2017-12-08] MEDS: PANTOPRAZOLE 40 MG/10 ML VIAL IV SCH (15:22)
[2017-12-08] MEDS: B-COMPLEX W/ C & FOLIC ACID(NEPHROVITE TAB) PO SCH (15:23)
[2017-12-08] MEDS: CLOPIDOGREL BISULFATE 75 MG TAB NG SCH (15:23)
[2017-12-08] MEDS: MEMANTINE HCL 5 MG TAB PO SCH (15:23)
[2017-12-08] MEDS: ALLOPURINOL 100 MG TAB NG SCH (15:23)
[2017-12-08 16:00] VITALS: BP 94/54
[2017-12-08 17:43] VITALS: BP 160/72
[2017-12-08 20:00] VITALS: BP 87/58
[2017-12-08] MEDS: ATORVASTATIN 20 MG TAB NG SCH (21:50)
[2017-12-09] VITALS: BP 146/73
[2017-12-09 04:00] VITALS: BP 142/69
[2017-12-09] MEDS: ACCU-CHEK COMFORT CURVE STRIP VI SCH ×4 (06:00→17:32)
[2017-12-09] MEDS: InsuLIN REG 1unit/0.01ml Soln (100units/ml) SC SCH ×4 (06:00→17:52)
[2017-12-09 06:13] LABS: Potassium 4.9 mmol/L (3.5-5.1)
[2017-12-09 06:18] LABS: Albumin 2.4 g/dL (3.4-5.0); BUN/Creatinine Ratio 9.8; Bilirubin, Total 0.5 mg/dL (0.2-1.0); Calcium 9.3 mg/dL (8.5-10.1); Total Protein 6.8 g/dL (6.4-8.2)
[2017-12-09] MEDS: buPROPion HCL 75 MG TAB PO SCH ×2 (06:30→17:53)
[2017-12-09 07:48] VITALS: BP 102/50
[2017-12-09] MEDS ORDERED: MORPHINE SULFATE 4 MG/ML SYR/VIAL IV PRN (08:45)
[2017-12-09] MEDS: CLOPIDOGREL BISULFATE 75 MG TAB NG SCH (10:00)
[2017-12-09] MEDS: ALLOPURINOL 100 MG TAB NG SCH (10:00)
[2017-12-09] MEDS: B-COMPLEX W/ C & FOLIC ACID(NEPHROVITE TAB) PO SCH (10:00)
[2017-12-09] MEDS: MEMANTINE HCL 5 MG TAB PO SCH (10:00)
[2017-12-09] MEDS: amLODIPine BESYLATE 5 MG TAB PO SCH (10:00)
[2017-12-09] MEDS: ENOXAPARIN SOD 30 MG/0.3 ML SYRINGE SC SCH (10:09)
[2017-12-09] MEDS: PANTOPRAZOLE 40 MG/10 ML VIAL IV SCH (10:09)
[2017-12-09] MEDS: FLUCONAZOLE 200MG/100ML 100 ML IV SCH (10:10)
[2017-12-09] MEDS: cefTRIAXone 1GM/10ml IVPUSH 10 ML IV SCH (10:12)
[2017-12-09 12:08] VITALS: BP 100/59
[2017-12-09] MEDS: MORPHINE SULFATE 4 MG/ML SYR/VIAL IV PRN ×2 (13:28→17:58)
[2017-12-09 15:48] VITALS: BP 143/76
[2017-12-09] MEDS ORDERED: VANCOMYCIN 500 MG in D5W 5% 100 ML IV ONE (16:00)
[2017-12-09 19:51] VITALS: BP 139/70
[2017-12-09] MEDS: ATORVASTATIN 20 MG TAB NG SCH (22:00)
[2017-12-10 00:23] VITALS: BP 138/72
[2017-12-10 05:23] LABS: Basophils # (auto) 0 uL; Basophils % (auto) 0.3 % (0.0-2.0); Eosinophils # (auto) 0.6 uL; Eosinophils % (auto) 4.1 % (0.0-7.0); Hematocrit 28.7 % (41.0-53.0); Hemoglobin 9.2 g/dL (13.5-17.5); Lymphocytes # (auto) 1.7 uL; Lymphocytes % (auto) 11.8 % (10.0-50.0); Mean Corpuscular Hemoglobin 29.1 pg (28.0-32.0); Mean Corpuscular Hgb Conc. 32.2 g/dL (32.0-36.0); Mean Corpuscular Volume 90.4 fL (80.0-100.0); Monocytes # (auto) 1.8 uL; Monocytes % (auto) 12.7 % (0.0-12.0); Neutrophils # (auto) 10.2 uL; Neutrophils % (auto) 71.1 % (37.0-80.0); Nucleated Red Blood Cells % 0.1 %; Platelet Count (auto) 257 10^3/uL (140-450); Red Blood Cells 3.17 10^6/uL (4.5-5.90); Red Cell Distribution Width 15.8 % (11.8-14.3); White Blood Cell 14.3 10^3/uL (4.4-10.8)
[2017-12-10] MEDS: InsuLIN REG 1unit/0.01ml Soln (100units/ml) SC SCH ×5 (05:39→23:30)
[2017-12-10] MEDS: ACCU-CHEK COMFORT CURVE STRIP VI SCH ×5 (05:39→23:30)
[2017-12-10 06:09] LABS: BUN/Creatinine Ratio 10.6; Calcium 9.7 mg/dL (8.5-10.1); Potassium 5.3 mmol/L (3.5-5.1)
[2017-12-10 06:18] LABS: Phosphorus 9.8 mg/dL (2.5-4.90)
[2017-12-10] MEDS: buPROPion HCL 75 MG TAB PO SCH ×2 (06:37→17:52)
[2017-12-10 08:03] VITALS: BP 136/72
[2017-12-10] MEDS: cefTRIAXone 1GM/10ml IVPUSH 10 ML IV SCH (08:56)
[2017-12-10] MEDS: MEMANTINE HCL 5 MG TAB PO SCH (10:00)
[2017-12-10] MEDS: B-COMPLEX W/ C & FOLIC ACID(NEPHROVITE TAB) PO SCH (10:00)
[2017-12-10] MEDS: ALLOPURINOL 100 MG TAB NG SCH (10:00)
[2017-12-10] MEDS: amLODIPine BESYLATE 5 MG TAB PO SCH (10:00)
[2017-12-10] MEDS: CLOPIDOGREL BISULFATE 75 MG TAB NG SCH (10:00)
[2017-12-10] MEDS ORDERED: SODIUM BICARBONATE 8.4 % INJ 50ML VIAL IV ONE (10:15)
[2017-12-10] MEDS ORDERED: CALCIUM GLUC 4.65meq/50ml D5AE 50 ML IV ONE (11:15)
[2017-12-10] MEDS: FLUCONAZOLE 200MG/100ML 100 ML IV SCH (11:21)
[2017-12-10] MEDS: PANTOPRAZOLE 40 MG/10 ML VIAL IV SCH (11:21)
[2017-12-10] MEDS: ENOXAPARIN SOD 30 MG/0.3 ML SYRINGE SC SCH (11:21)
[2017-12-10 11:50] VITALS: BP 131/67
[2017-12-10] MEDS ORDERED: SODIUM BICARBONATE 8.4% INJ 50ML SYRINGE IV ONE (12:00)
[2017-12-10] MEDS ORDERED: CALCIUM CHL 100MG/ML 1,000 MG in D5W 5% 100 ML IV ONE (13:00)
[2017-12-10 15:55] VITALS: BP 181/76
[2017-12-10] MEDS: LABETALOL HCL 5 MG/ML ML 20ML VIAL IV PRN ×2 (17:34→20:17)
[2017-12-10 19:50] VITALS: BP 195/78
[2017-12-10] MEDS: ATORVASTATIN 20 MG TAB NG SCH (21:53)
[2017-12-11] VITALS (8 sets, daily range): BP systolic 129–174; BP diastolic 54–76
[2017-12-11] MEDS: MORPHINE SULFATE 4 MG/ML SYR/VIAL IV PRN ×2 (00:23→23:53)
[2017-12-11] MEDS: LABETALOL HCL 5 MG/ML ML 20ML VIAL IV PRN (01:47)
[2017-12-11] MEDS: hydrALAZINE HCL 20 MG/ML VL IV PRN (03:02)
[2017-12-11] MEDS: buPROPion HCL 75 MG TAB PO SCH ×2 (05:51→18:36)
[2017-12-11] MEDS: ACCU-CHEK COMFORT CURVE STRIP VI SCH ×4 (05:52→23:54)
[2017-12-11] MEDS: InsuLIN REG 1unit/0.01ml Soln (100units/ml) SC SCH ×4 (05:52→23:54)
[2017-12-11] MEDS: PANTOPRAZOLE 40 MG/10 ML VIAL IV SCH (09:52)
[2017-12-11] MEDS: ENOXAPARIN SOD 30 MG/0.3 ML SYRINGE SC SCH (09:52)
[2017-12-11] MEDS: FLUCONAZOLE 200MG/100ML 100 ML IV SCH (09:52)
[2017-12-11] MEDS: MEMANTINE HCL 5 MG TAB PO SCH (10:00)
[2017-12-11] MEDS: B-COMPLEX W/ C & FOLIC ACID(NEPHROVITE TAB) PO SCH (10:00)
[2017-12-11] MEDS: CLOPIDOGREL BISULFATE 75 MG TAB NG SCH (10:00)
[2017-12-11] MEDS: ALLOPURINOL 100 MG TAB NG SCH (10:00)
[2017-12-11] MEDS: amLODIPine BESYLATE 5 MG TAB PO SCH (10:00)
[2017-12-11 15:18] LABS: INR 1.1 (0.9-1.15)
[2017-12-11] MEDS: ATORVASTATIN 20 MG TAB NG SCH (20:59)
[2017-12-12] VITALS: BP 150/92
[2017-12-12] MEDS: LORazepam 2MG/ML-1ML VIAL IV PRN (01:14)
[2017-12-12 04:00] VITALS: BP 140/75
[2017-12-12 04:56] LABS: Basophils # (auto) 0.1 uL; Basophils % (auto) 0.8 % (0.0-2.0); Eosinophils # (auto) 0.6 uL; Eosinophils % (auto) 7.5 % (0.0-7.0); Hematocrit 27.7 % (41.0-53.0); Hemoglobin 9.1 g/dL (13.5-17.5); Lymphocytes # (auto) 1.4 uL; Lymphocytes % (auto) 18.2 % (10.0-50.0); Mean Corpuscular Hemoglobin 29.5 pg (28.0-32.0); Mean Corpuscular Hgb Conc. 32.8 g/dL (32.0-36.0); Monocytes # (auto) 1.1 uL; Monocytes % (auto) 14.5 % (0.0-12.0); Neutrophils # (auto) 4.7 uL; Nucleated Red Blood Cells % 0.2 %; Platelet Count (auto) 337 10^3/uL (140-450); Red Blood Cells 3.08 10^6/uL (4.5-5.90); Red Cell Distribution Width 15.9 % (11.8-14.3); White Blood Cell 7.9 10^3/uL (4.4-10.8)
[2017-12-12 05:08] LABS: Albumin 2.1 g/dL (3.4-5.0); Calcium 9.1 mg/dL (8.5-10.1)
[2017-12-12 05:10] LABS: BUN/Creatinine Ratio 10.6
[2017-12-12 05:12] LABS: Bilirubin, Total 0.5 mg/dL (0.2-1.0); Total Protein 6.6 g/dL (6.4-8.2)
[2017-12-12] MEDS: InsuLIN REG 1unit/0.01ml Soln (100units/ml) SC SCH ×4 (06:00→23:59)
[2017-12-12] MEDS: ACCU-CHEK COMFORT CURVE STRIP VI SCH ×4 (06:26→23:59)
[2017-12-12] MEDS: buPROPion HCL 75 MG TAB PO SCH ×2 (06:26→18:40)
[2017-12-12 07:52] VITALS: BP 116/61
[2017-12-12] MEDS: CLOPIDOGREL BISULFATE 75 MG TAB NG SCH (09:35)
[2017-12-12] MEDS: ALLOPURINOL 100 MG TAB NG SCH (09:35)
[2017-12-12] MEDS: amLODIPine BESYLATE 5 MG TAB PO SCH (09:36)
[2017-12-12] MEDS: B-COMPLEX W/ C & FOLIC ACID(NEPHROVITE TAB) PO SCH (09:36)
[2017-12-12] MEDS: FLUCONAZOLE 200MG/100ML 100 ML IV SCH (09:42)
[2017-12-12] MEDS: PANTOPRAZOLE 40 MG/10 ML VIAL IV SCH (09:42)
[2017-12-12] MEDS: ENOXAPARIN SOD 30 MG/0.3 ML SYRINGE SC SCH (09:43)
[2017-12-12 12:00] VITALS: BP 128/70
[2017-12-12 16:00] VITALS: BP 145/64
[2017-12-12] MEDS ORDERED: LIDOCAINE 1% (LOCAL ANESTH.) PF 5ml SDV ID ONE (16:00)
[2017-12-12] MEDS ORDERED: TPN PER PHARMACY 0 ML IV SCH (16:30)
[2017-12-12] MEDS ORDERED: AMINO ACID INFUSION IN D10W 1,000 ML IV ONE (20:00)
[2017-12-12] MEDS: SODIUM CHLOR 0.9% PF (SALINE LOCK) 10ML VIAL/SYR IV SCH (21:40)
[2017-12-12] MEDS: ATORVASTATIN 20 MG TAB NG SCH (21:40)
[2017-12-12 22:00] VITALS: BP 169/80
[2017-12-12] MEDS: LABETALOL HCL 5 MG/ML ML 20ML VIAL IV PRN (22:25)
[2017-12-13] MEDS: hydrALAZINE HCL 20 MG/ML VL IV PRN
[2017-12-13 01:00] VITALS: BP 129/48
[2017-12-13 05:00] VITALS: BP 147/55
[2017-12-13 05:41] LABS: Basophils # (auto) 0.1 uL; Basophils % (auto) 0.7 % (0.0-2.0); Eosinophils # (auto) 0.6 uL; Eosinophils % (auto) 7.8 % (0.0-7.0); Hematocrit 26.1 % (41.0-53.0); Hemoglobin 8.6 g/dL (13.5-17.5); Lymphocytes # (auto) 1.3 uL; Lymphocytes % (auto) 16.5 % (10.0-50.0); Mean Corpuscular Hemoglobin 29.4 pg (28.0-32.0); Mean Corpuscular Hgb Conc. 32.8 g/dL (32.0-36.0); Mean Corpuscular Volume 89.8 fL (80.0-100.0); Monocytes # (auto) 1.3 uL; Neutrophils # (auto) 4.6 uL; Platelet Count (auto) 339 10^3/uL (140-450); Red Blood Cells 2.91 10^6/uL (4.5-5.90); Red Cell Distribution Width 15.7 % (11.8-14.3); White Blood Cell 7.8 10^3/uL (4.4-10.8)
[2017-12-13 06:09] LABS: Albumin 2.2 g/dL (3.4-5.0); BUN/Creatinine Ratio 9.6; Bilirubin, Total 0.4 mg/dL (0.2-1.0); Calcium 9.1 mg/dL (8.5-10.1); Magnesium 3.5 mg/dL (1.6-2.6); Potassium 4.9 mmol/L (3.5-5.1); Pre Albumin 19.2 mg/dL (20.0-40.0); Total Protein 6.3 g/dL (6.4-8.2)
[2017-12-13] MEDS: InsuLIN REG 1unit/0.01ml Soln (100units/ml) SC SCH ×3 (06:18→18:15)
[2017-12-13] MEDS: buPROPion HCL 75 MG TAB PO SCH ×2 (06:18→18:15)
[2017-12-13] MEDS: ACCU-CHEK COMFORT CURVE STRIP VI SCH ×3 (06:18→18:14)
[2017-12-13 06:38] LABS: Phosphorus 11.2 mg/dL (2.5-4.90)
[2017-12-13] MEDS ORDERED: EPOETIN ALFA 10,000 UNIT/1 ML VIAL IV ONE (07:00)
[2017-12-13] MEDS ORDERED: HEPARIN SODIUM (PORCINE) 5000 UNITS/ML 1ML VIAL IV ONE (07:00)
[2017-12-13 10:00] VITALS: BP 131/59
[2017-12-13] MEDS: ENOXAPARIN SOD 30 MG/0.3 ML SYRINGE SC SCH (10:25)
[2017-12-13] MEDS: PANTOPRAZOLE 40 MG/10 ML VIAL IV SCH (10:25)
[2017-12-13] MEDS: B-COMPLEX W/ C & FOLIC ACID(NEPHROVITE TAB) PO SCH (10:26)
[2017-12-13] MEDS: FLUCONAZOLE 200MG/100ML 100 ML IV SCH (10:27)
[2017-12-13] MEDS: SODIUM CHLOR 0.9% PF (SALINE LOCK) 10ML VIAL/SYR IV SCH ×2 (10:27→21:15)
[2017-12-13] MEDS: CLOPIDOGREL BISULFATE 75 MG TAB NG SCH (10:27)
[2017-12-13] MEDS: amLODIPine BESYLATE 5 MG TAB PO SCH (10:27)
[2017-12-13] MEDS: ALLOPURINOL 100 MG TAB NG SCH (10:27)
[2017-12-13 14:45] VITALS: BP 113/50
[2017-12-13] MEDS: MORPHINE SULFATE 4 MG/ML SYR/VIAL IV PRN ×2 (15:21→20:13)
[2017-12-13 17:00] VITALS: BP 148/62
[2017-12-13] MEDS ORDERED: TPN PER PHARMACY IV NR ×7 (20:00)
[2017-12-13] MEDS: ATORVASTATIN 20 MG TAB NG SCH (21:15)
[2017-12-13 22:00] VITALS: BP 143/76
[2017-12-14] MEDS: ACCU-CHEK COMFORT CURVE STRIP VI SCH ×4 (00:19→18:11)
[2017-12-14] MEDS: InsuLIN REG 1unit/0.01ml Soln (100units/ml) SC SCH ×4 (00:20→18:11)
[2017-12-14] MEDS: MORPHINE SULFATE 4 MG/ML SYR/VIAL IV PRN (00:22)
[2017-12-14 05:00] VITALS: BP 148/82
[2017-12-14 05:47] LABS: Basophils # (auto) 0.1 uL; Basophils % (auto) 0.7 % (0.0-2.0); Eosinophils # (auto) 0.8 uL; Hematocrit 28.2 % (41.0-53.0); Hemoglobin 8.8 g/dL (13.5-17.5); Lymphocytes # (auto) 1.4 uL; Lymphocytes % (auto) 20.9 % (10.0-50.0); Mean Corpuscular Hemoglobin 30.5 pg (28.0-32.0); Mean Corpuscular Hgb Conc. 31.4 g/dL (32.0-36.0); Mean Corpuscular Volume 97.1 fL (80.0-100.0); Monocytes # (auto) 1.1 uL; Neutrophils # (auto) 3.6 uL; Neutrophils % (auto) 51.4 % (37.0-80.0); Nucleated Red Blood Cells % 0.1 %; Platelet Count (auto) 301 10^3/uL (140-450); Red Cell Distribution Width 16.5 % (11.8-14.3); White Blood Cell 6.9 10^3/uL (4.4-10.8)
[2017-12-14] MEDS: buPROPion HCL 75 MG TAB PO SCH ×2 (06:42→18:53)
[2017-12-14 08:00] VITALS: BP 150/77
[2017-12-14 08:26] LABS: Albumin 2.3 g/dL (3.4-5.0); BUN/Creatinine Ratio 8.2; Bilirubin, Total 0.4 mg/dL (0.2-1.0); Magnesium 2.7 mg/dL (1.6-2.6); Phosphorus 7.7 mg/dL (2.5-4.90); Potassium 4.3 mmol/L (3.5-5.1); Total Protein 6.6 g/dL (6.4-8.2)
[2017-12-14] MEDS: amLODIPine BESYLATE 5 MG TAB PO SCH (10:34)
[2017-12-14] MEDS: B-COMPLEX W/ C & FOLIC ACID(NEPHROVITE TAB) PO SCH (10:34)
[2017-12-14] MEDS: CLOPIDOGREL BISULFATE 75 MG TAB NG SCH (10:34)
[2017-12-14] MEDS: ALLOPURINOL 100 MG TAB NG SCH (10:34)
[2017-12-14] MEDS: PANTOPRAZOLE 40 MG/10 ML VIAL IV SCH (10:35)
[2017-12-14] MEDS: ENOXAPARIN SOD 30 MG/0.3 ML SYRINGE SC SCH (10:35)
[2017-12-14] MEDS: FLUCONAZOLE 200MG/100ML 100 ML IV SCH (10:36)
[2017-12-14] MEDS: SODIUM CHLOR 0.9% PF (SALINE LOCK) 10ML VIAL/SYR IV SCH ×2 (10:36→22:00)
[2017-12-14] MEDS: hydrALAZINE HCL 20 MG/ML VL IV PRN (14:01)
[2017-12-14 17:00] VITALS: BP 121/46
[2017-12-14] MEDS ORDERED: TPN PER PHARMACY IV NR ×8 (20:00)
[2017-12-14] MEDS: ATORVASTATIN 20 MG TAB NG SCH (22:00)
[2017-12-15] MEDS: ACCU-CHEK COMFORT CURVE STRIP VI SCH ×4 (00:25→17:34)
[2017-12-15] MEDS ORDERED: D5W 5% 1,000 ML IV SCH (02:00)
[2017-12-15] MEDS: InsuLIN REG 1unit/0.01ml Soln (100units/ml) SC SCH ×4 (06:00→17:34)
[2017-12-15 06:22] LABS: Albumin 2.2 g/dL (3.4-5.0); BUN/Creatinine Ratio 7.8; Bilirubin, Total 0.3 mg/dL (0.2-1.0); Calcium 8.8 mg/dL (8.5-10.1); Magnesium 2.8 mg/dL (1.6-2.6); Phosphorus 7.5 mg/dL (2.5-4.90); Potassium 4.1 mmol/L (3.5-5.1); Total Protein 6.1 g/dL (6.4-8.2)
[2017-12-15 06:23] LABS: Basophils # (auto) 0.1 uL; Basophils % (auto) 0.9 % (0.0-2.0); Eosinophils # (auto) 0.7 uL; Hematocrit 25.9 % (41.0-53.0); Hemoglobin 8.4 g/dL (13.5-17.5); Lymphocytes # (auto) 1.3 uL; Lymphocytes % (auto) 19.5 % (10.0-50.0); Mean Corpuscular Hgb Conc. 32.4 g/dL (32.0-36.0); Mean Corpuscular Volume 89.5 fL (80.0-100.0); Monocytes # (auto) 0.9 uL; Monocytes % (auto) 13.9 % (0.0-12.0); Neutrophils # (auto) 3.8 uL; Neutrophils % (auto) 55.7 % (37.0-80.0); Nucleated Red Blood Cells % 0.1 %; Platelet Count (auto) 320 10^3/uL (140-450); Red Cell Distribution Width 15.7 % (11.8-14.3); White Blood Cell 6.8 10^3/uL (4.4-10.8)
[2017-12-15] MEDS: buPROPion HCL 75 MG TAB PO SCH ×2 (07:04→18:54)
[2017-12-15] MEDS ORDERED: SODIUM CHL 0.9% 1000 ML BAG XX ONE (08:00)
[2017-12-15] MEDS ORDERED: EPOETIN ALFA 10,000 UNIT/1 ML VIAL IV ONE (08:00)
[2017-12-15] MEDS ORDERED: ALPRAZolam 0.5 MG TAB PO ONE ×2 (09:45)
[2017-12-15] MEDS: amLODIPine BESYLATE 5 MG TAB PO SCH (10:00)
[2017-12-15 10:01] VITALS: BP_SYST 107; BP_SYST 150; BP_DIAS 74; BP_DIAS 99
[2017-12-15] MEDS: CLOPIDOGREL BISULFATE 75 MG TAB NG SCH (10:08)
[2017-12-15] MEDS: ALLOPURINOL 100 MG TAB NG SCH (10:09)
[2017-12-15] MEDS: FLUCONAZOLE 200MG/100ML 100 ML IV SCH (10:09)
[2017-12-15] MEDS: B-COMPLEX W/ C & FOLIC ACID(NEPHROVITE TAB) PO SCH (10:09)
[2017-12-15] MEDS: D5W 5% 1,000 ML IV SCH (11:48)
[2017-12-15] MEDS: SODIUM CHLOR 0.9% PF (SALINE LOCK) 10ML VIAL/SYR IV SCH ×2 (11:49→23:26)
[2017-12-15] MEDS: PANTOPRAZOLE 40 MG/10 ML VIAL IV SCH (12:14)
[2017-12-15 14:22] VITALS: BP 104/50
[2017-12-15 17:00] VITALS: BP 144/81
[2017-12-15] MEDS ORDERED: TPN PER PHARMACY IV NR ×9 (20:00)
[2017-12-15 22:00] VITALS: BP 137/70
[2017-12-15] MEDS: ATORVASTATIN 20 MG TAB NG SCH (23:27)
[2017-12-16] MEDS: InsuLIN REG 1unit/0.01ml Soln (100units/ml) SC SCH
[2017-12-16] MEDS: ACCU-CHEK COMFORT CURVE STRIP VI SCH (00:33)
[2017-12-16 05:00] VITALS: BP 137/81
[2017-12-16 06:36] LABS: Albumin 2.3 g/dL (3.4-5.0); BUN/Creatinine Ratio 6.1; Bilirubin, Total 0.3 mg/dL (0.2-1.0); Calcium 8.8 mg/dL (8.5-10.1); Magnesium 2.5 mg/dL (1.6-2.6); Phosphorus 5.6 mg/dL (2.5-4.90); Potassium 3.8 mmol/L (3.5-5.1); Total Protein 6.2 g/dL (6.4-8.2)
[2017-12-16] MEDS: buPROPion HCL 75 MG TAB PO SCH (07:09)
[2017-12-16 08:00] VITALS: BP 135/70
[2017-12-16] MEDS: SODIUM CHLOR 0.9% PF (SALINE LOCK) 10ML VIAL/SYR IV SCH ×2 (10:00→22:18)
[2017-12-16] MEDS: D5W 5% 1,000 ML IV SCH (11:31)
[2017-12-16] MEDS: CLOPIDOGREL BISULFATE 75 MG TAB NG SCH (11:32)
[2017-12-16] MEDS: FLUCONAZOLE 200MG/100ML 100 ML IV SCH (11:32)
[2017-12-16] MEDS: PANTOPRAZOLE 40 MG/10 ML VIAL IV SCH (11:32)
[2017-12-16] MEDS: B-COMPLEX W/ C & FOLIC ACID(NEPHROVITE TAB) PO SCH (11:33)
[2017-12-16] MEDS: ALLOPURINOL 100 MG TAB NG SCH (11:33)
[2017-12-16] MEDS: amLODIPine BESYLATE 5 MG TAB PO SCH (11:34)
[2017-12-16 12:00] VITALS: BP 152/78
[2017-12-16] MEDS: MORPHINE SULFATE 4 MG/ML SYR/VIAL IV PRN (14:02)
[2017-12-16 16:54] VITALS: BP 140/66
[2017-12-16 22:00] VITALS: BP 146/67
[2017-12-16] MEDS: ATORVASTATIN 20 MG TAB NG SCH (22:18)
[2017-12-17 05:00] VITALS: BP 135/59
[2017-12-17 07:22] LABS: Basophils # (auto) 0.1 uL; Basophils % (auto) 0.9 % (0.0-2.0); Eosinophils # (auto) 0.6 uL; Eosinophils % (auto) 8.9 % (0.0-7.0); Hematocrit 26.6 % (41.0-53.0); Hemoglobin 8.5 g/dL (13.5-17.5); Lymphocytes # (auto) 1.9 uL; Lymphocytes % (auto) 27.3 % (10.0-50.0); Mean Corpuscular Hemoglobin 28.4 pg (28.0-32.0); Mean Corpuscular Volume 88.9 fL (80.0-100.0); Monocytes # (auto) 0.9 uL; Neutrophils # (auto) 3.4 uL; Neutrophils % (auto) 49.9 % (37.0-80.0); Nucleated Red Blood Cells % 0.1 %; Platelet Count (auto) 347 10^3/uL (140-450); Red Cell Distribution Width 15.7 % (11.8-14.3); White Blood Cell 6.9 10^3/uL (4.4-10.8)
[2017-12-17 07:24] LABS: Albumin 2.2 g/dL (3.4-5.0); Calcium 8.7 mg/dL (8.5-10.1); Potassium 4.5 mmol/L (3.5-5.1)
[2017-12-17 07:26] LABS: BUN/Creatinine Ratio 5.9
[2017-12-17 07:28] LABS: Bilirubin, Total 0.5 mg/dL (0.2-1.0); Total Protein 6.1 g/dL (6.4-8.2)
[2017-12-17 09:29] VITALS: BP 140/74
[2017-12-17] MEDS: SODIUM CHLOR 0.9% PF (SALINE LOCK) 10ML VIAL/SYR IV SCH ×2 (09:41→21:31)
[2017-12-17] MEDS: PANTOPRAZOLE 40 MG/10 ML VIAL IV SCH (09:41)
[2017-12-17] MEDS: ACETAMINOPHEN 650 MG RECT SUPP PR PRN (09:42)
[2017-12-17] MEDS: B-COMPLEX W/ C & FOLIC ACID(NEPHROVITE TAB) PO SCH (09:42)
[2017-12-17] MEDS: ALLOPURINOL 100 MG TAB NG SCH (09:42)
[2017-12-17] MEDS: CLOPIDOGREL BISULFATE 75 MG TAB NG SCH (09:42)
[2017-12-17] MEDS: amLODIPine BESYLATE 5 MG TAB PO SCH (09:43)
[2017-12-17] MEDS: FLUCONAZOLE 200MG/100ML 100 ML IV SCH (09:43)
[2017-12-17] MEDS: D5W 5% 1,000 ML IV SCH (09:56)
[2017-12-17] MEDS: PROMETHAZINE HCL 25 MG/ML 1ML IV PRN (11:14)
[2017-12-17 14:28] VITALS: BP 119/50
[2017-12-17 17:44] VITALS: BP 134/59
[2017-12-17] MEDS: Novasource Renal 8 Ounces PO SCH (18:08)
[2017-12-17] MEDS: MORPHINE SULFATE 4 MG/ML SYR/VIAL IV PRN (19:34)
[2017-12-17] MEDS: ATORVASTATIN 20 MG TAB NG SCH (21:31)
[2017-12-17 22:00] VITALS: BP 138/69
[2017-12-18 04:42] VITALS: BP 138/69
[2017-12-18 04:46] VITALS: BP 132/61
[2017-12-18 05:44] LABS: Basophils # (auto) 0.1 uL; Basophils % (auto) 0.8 % (0.0-2.0); Eosinophils # (auto) 0.6 uL; Eosinophils % (auto) 9.4 % (0.0-7.0); Hematocrit 27.3 % (41.0-53.0); Hemoglobin 8.8 g/dL (13.5-17.5); Lymphocytes # (auto) 1.8 uL; Lymphocytes % (auto) 26.5 % (10.0-50.0); Mean Corpuscular Hgb Conc. 32.3 g/dL (32.0-36.0); Mean Corpuscular Volume 89.7 fL (80.0-100.0); Monocytes # (auto) 0.8 uL; Monocytes % (auto) 11.1 % (0.0-12.0); Neutrophils # (auto) 3.6 uL; Neutrophils % (auto) 52.2 % (37.0-80.0); Nucleated Red Blood Cells % 0.2 %; Platelet Count (auto) 378 10^3/uL (140-450); Red Blood Cells 3.04 10^6/uL (4.5-5.90); Red Cell Distribution Width 15.9 % (11.8-14.3); White Blood Cell 6.9 10^3/uL (4.4-10.8)
[2017-12-18 06:01] LABS: BUN/Creatinine Ratio 5.6; Calcium 8.7 mg/dL (8.5-10.1); Potassium 4.8 mmol/L (3.5-5.1)
[2017-12-18 09:00] VITALS: BP 142/81
[2017-12-18] MEDS: Novasource Renal 8 Ounces PO SCH ×2 (09:24→18:39)
[2017-12-18] MEDS: FLUCONAZOLE 200MG/100ML 100 ML IV SCH (09:24)
[2017-12-18] MEDS: ALLOPURINOL 100 MG TAB NG SCH (09:24)
[2017-12-18] MEDS: B-COMPLEX W/ C & FOLIC ACID(NEPHROVITE TAB) PO SCH (09:24)
[2017-12-18] MEDS: CLOPIDOGREL BISULFATE 75 MG TAB NG SCH (09:25)
[2017-12-18] MEDS: amLODIPine BESYLATE 5 MG TAB PO SCH (09:25)
[2017-12-18] MEDS: PANTOPRAZOLE 40 MG/10 ML VIAL IV SCH (09:25)
[2017-12-18] MEDS: SODIUM CHLOR 0.9% PF (SALINE LOCK) 10ML VIAL/SYR IV SCH ×2 (09:25→21:25)
[2017-12-18] MEDS: MORPHINE SULFATE 4 MG/ML SYR/VIAL IV PRN (09:48)
[2017-12-18] MEDS: PROMETHAZINE HCL 25 MG/ML 1ML IV PRN ×2 (09:49→21:25)
[2017-12-18] MEDS ORDERED: EPOETIN ALFA 10,000 UNIT/1 ML VIAL IV ONE (12:45)
[2017-12-18 13:00] VITALS: BP 132/65
[2017-12-18] MEDS: D5W 5% 1,000 ML IV SCH (13:59)
[2017-12-18 16:44] VITALS: BP 121/59
[2017-12-18 17:00] VITALS: BP 130/64
[2017-12-18] MEDS: ATORVASTATIN 20 MG TAB NG SCH (21:25)
[2017-12-19] MEDS ORDERED: diphenhdrAMINE HCL 50 MG/1 ML VL IV ONE (00:15)
[2017-12-19 05:30] VITALS: BP 147/67
[2017-12-19 05:46] LABS: Basophils # (auto) 0.1 uL; Basophils % (auto) 0.9 % (0.0-2.0); Eosinophils # (auto) 0.5 uL; Eosinophils % (auto) 8.2 % (0.0-7.0); Hematocrit 28.8 % (41.0-53.0); Hemoglobin 9.5 g/dL (13.5-17.5); Lymphocytes # (auto) 1.4 uL; Lymphocytes % (auto) 22.7 % (10.0-50.0); Mean Corpuscular Hemoglobin 29.6 pg (28.0-32.0); Mean Corpuscular Hgb Conc. 33.1 g/dL (32.0-36.0); Mean Corpuscular Volume 89.4 fL (80.0-100.0); Monocytes # (auto) 0.8 uL; Neutrophils # (auto) 3.4 uL; Neutrophils % (auto) 55.2 % (37.0-80.0); Nucleated Red Blood Cells % 0.1 %; Platelet Count (auto) 320 10^3/uL (140-450); Red Blood Cells 3.22 10^6/uL (4.5-5.90); Red Cell Distribution Width 16.3 % (11.8-14.3); White Blood Cell 6.2 10^3/uL (4.4-10.8)
[2017-12-19 06:08] LABS: Potassium 4.4 mmol/L (3.5-5.1)
[2017-12-19 06:14] LABS: BUN/Creatinine Ratio 4.7
[2017-12-19] MEDS: Novasource Renal 8 Ounces PO SCH (08:00)
[2017-12-19 08:20] VITALS: BP 140/57
[2017-12-19] MEDS: B-COMPLEX W/ C & FOLIC ACID(NEPHROVITE TAB) PO SCH (08:44)
[2017-12-19] MEDS: PANTOPRAZOLE 40 MG/10 ML VIAL IV SCH (08:44)
[2017-12-19] MEDS: FLUCONAZOLE 200MG/100ML 100 ML IV SCH (08:44)
[2017-12-19] MEDS: ALLOPURINOL 100 MG TAB NG SCH (08:47)
[2017-12-19] MEDS: D5W 5% 1,000 ML IV SCH (08:47)
[2017-12-19] MEDS: amLODIPine BESYLATE 5 MG TAB PO SCH (08:47)
[2017-12-19] MEDS: CLOPIDOGREL BISULFATE 75 MG TAB NG SCH (08:48)
[2017-12-19] MEDS: SODIUM CHLOR 0.9% PF (SALINE LOCK) 10ML VIAL/SYR IV SCH (08:48)
[2017-12-19] MEDS: MORPHINE SULFATE 4 MG/ML SYR/VIAL IV PRN (10:41)
[2017-12-19 11:20] VITALS: BP 140/57
[2017-12-19 11:42] VITALS: BP 140/67
[2017-12-19 12:41] VITALS: BP 140/57
[2017-12-19 13:00] VITALS: BP 124/66
== END 2017-12-19 16:50 | disposition home health service (06) | DRG 871 ==
LOC: EDBD 16:26 → ER 16:26 → EDUNIT# 16:26 → TELE 16:27 → TELE-CENTR 23:44 → DOU IN ICU 11-30 19:57 → TELE-WESTW 12-12 18:19
PROVIDERS: ADMIT Nurse Practitioner; ATTEND Internal Medicine Pulmonary Disease
PROC: 5A1D70Z Performance of Urinary Filtration, Intermittent, Less than 6 Hours Per Day (ICD-10-PCS; 2017-11-28)
PROC: 009U3ZX Drainage of Spinal Canal, Percutaneous Approach, Diagnostic (ICD-10-PCS; principal; 2017-11-30)
PROC: B01B1ZZ Fluoroscopy of Spinal Cord using Low Osmolar Contrast (ICD-10-PCS; 2017-11-30)
PROC: 5A1D70Z Performance of Urinary Filtration, Intermittent, Less than 6 Hours Per Day (ICD-10-PCS; 2017-12-02)
PROC: 5A1D70Z Performance of Urinary Filtration, Intermittent, Less than 6 Hours Per Day (ICD-10-PCS; 2017-12-04)
PROC: 5A1D70Z Performance of Urinary Filtration, Intermittent, Less than 6 Hours Per Day (ICD-10-PCS; 2017-12-06)
PROC: 5A1D70Z Performance of Urinary Filtration, Intermittent, Less than 6 Hours Per Day (ICD-10-PCS; 2017-12-08)
PROC: 5A1D70Z Performance of Urinary Filtration, Intermittent, Less than 6 Hours Per Day (ICD-10-PCS; 2017-12-11)
PROC: 02HV33Z Insertion of Infusion Device into Superior Vena Cava, Percutaneous Approach (ICD-10-PCS; 2017-12-12)
PROC: 5A1D70Z Performance of Urinary Filtration, Intermittent, Less than 6 Hours Per Day (ICD-10-PCS; 2017-12-13)
PROC: 5A1D70Z Performance of Urinary Filtration, Intermittent, Less than 6 Hours Per Day (ICD-10-PCS; 2017-12-18)
PROC: 5A1D70Z Performance of Urinary Filtration, Intermittent, Less than 6 Hours Per Day (ICD-10-PCS; 2017-12-18)
DX: A41.9 Sepsis, unspecified organism (principal); G93.41 Metabolic encephalopathy; E87.0 Hyperosmolality and hypernatremia; E44.0 Moderate protein-calorie malnutrition; E11.21 Type 2 diabetes mellitus with diabetic nephropathy; I48.91 Unspecified atrial fibrillation; I12.0 Hypertensive chronic kidney disease with stage 5 chronic kidney disease or end stage renal disease; E87.1 Hypo-osmolality and hyponatremia; E87.5 Hyperkalemia; G40.409 Other generalized epilepsy and epileptic syndromes, not intractable, without status epilepticus; N18.6 End stage renal disease; Z99.2 Dependence on renal dialysis; Z68.31 Body mass index [BMI] 31.0-31.9, adult; E11.22 Type 2 diabetes mellitus with diabetic chronic kidney disease; E78.00 Pure hypercholesterolemia, unspecified; E78.5 Hyperlipidemia, unspecified; F32.9 Major depressive disorder, single episode, unspecified; F41.9 Anxiety disorder, unspecified; M10.9 Gout, unspecified; D63.8 Anemia in other chronic diseases classified elsewhere; G30.9 Alzheimer's disease, unspecified; F02.80 Dementia in other diseases classified elsewhere, unspecified severity, without behavioral disturbance, psychotic disturbance, mood disturbance, and anxiety; Z79.4 Long term (current) use of insulin; N40.0 Benign prostatic hyperplasia without lower urinary tract symptoms; Z79.899 Other long term (current) drug therapy; Z82.3 Family history of stroke; Z82.49 Family history of ischemic heart disease and other diseases of the circulatory system; Z86.73 Personal history of transient ischemic attack (TIA), and cerebral infarction without residual deficits; Z83.3 Family history of diabetes mellitus
CPT/HCPCS: 31720; 36415; 36569; 36600; 51702; 62272; 70450; 71045; 80048; 80053; 80202; 80307; 80320; 81001; 82040; 82140; 82306; 82607; 82746; 82805; 82945; 82962; 83605; 83735; 83970; 84100; 84157; 84439; 84443; 84478; 84484; 84550; 85025; 85379; 85610; 85730; 87040; 87070; 87081; 87086; 87205; 87529; 87899; 89051; 90935; 92610; 93005; 93306; 94761; 95819; 96361; 96365; 96366; 96375; 97110; 97116; 97530; A4565; C9113; J0610; J0885; J1450; J1642; J1815; J1956; J2270; J2405; J7060; J7131; Q4081